=== PATIENT | female | born 1945 | race Caucasian/White ===

== ENCOUNTER → 2023-09-07 12:30 | Outpatient (REF) | payer OTHER, SELFPAY ==
[2023-09-07 13:08] LABS: % Basophils 0.9 % (0-2); % Eosinophils 3.2 % (0-6); % Lymphocytes 38.7 % (20.5-51.1); % Monocytes 13.4 % (1.7-9.3); % Neutrophils 43.8 % (42.2-75.2); Absolute Eosinophils 0.2 10^3/uL (0-0.7); Absolute Lymphocytes 1.8 10^3/uL (1.2-3.4); Absolute Monocytes 0.6 10^3/uL (0.1-0.6); Hematocrit 33.3 % (37.0-47.0); Mean Corpuscular Hgb 32.3 pg (27.0-31.0); Mean Corpuscular Volume 97.7 fL (81.0-99.0); Mean Platelet Volume 10.4 fL (7.4-10.4); Nucleated Red Blood Cells % 0 %; Platelet Count 256 10^3/uL (130-400); Red Blood Cell Count 3.41 10^6/uL (4.20-5.40); Red Cell Dist. Width 13.1 % (11.5-14.5); White Blood Cell Count 4.6 10^3/uL (4.8-10.8)
[2023-09-07 13:42] LABS: IgA 210 mg/dl (70-400); IgG 966 mg/dl (700-1600)
[2023-09-07 13:43] LABS: IgM < 25 mg/dl (40-230)
[2023-09-07 14:07] LABS: ALT (SGPT) 16 U/L (0-35); AST (SGOT) 26 U/L (14-36); Albumin 3.6 g/dl (3.5-5.0); Alkaline Phosphatase 83 U/L (38-126); Blood Urea Nitrogen 22 mg/dl (7-17); Calcium 9.4 mg/dl (8.4-10.2); Carbon Dioxide 30 mmol/L (22-30); Chloride 105 mmol/L (98-107); Glucose 89 mg/dl (70-99); Sodium 138 mmol/L (135-145); Total Bilirubin 0.5 mg/dl (0.2-1.3); eGFR > 60.00
[2023-09-07 14:17] LABS: Erythrocyte Sed Rate 24 mm/hour (0-20)
[2023-09-11 00:25] LABS: IgE 5 kU/L (<=214)
== END ==
LOC: OLABWIL 12:30
PROVIDERS: ATTENDING PHYSICIAN Internal Medicine; FAMILY PHYSICIAN Family Medicine
DX: M06.9 Rheumatoid arthritis, unspecified (principal); Z51.81 Encounter for therapeutic drug level monitoring
CPT/HCPCS: 36415; 80053; 82784; 82785; 85025; 85652; 86140

== ENCOUNTER → 2023-12-07 10:15 | Outpatient (REF) | payer OTHER, SELFPAY ==
[2023-12-07 11:28] LABS: % Basophils 0.6 % (0-2); % Eosinophils 0.9 % (0-6); % Immature Granulocytes 0.4 % (0-0.5); % Lymphocytes 25.5 % (20.5-51.1); % Monocytes 12.7 % (1.7-9.3); % Neutrophils 59.9 % (42.2-75.2); Absolute Eosinophils 0.1 10^3/uL (0-0.7); Absolute Lymphocytes 1.4 10^3/uL (1.2-3.4); Absolute Monocytes 0.7 10^3/uL (0.1-0.6); Absolute Neutrophils 3.2 10^3/uL (1.4-6.5); Hematocrit 33.2 % (37.0-47.0); Hemoglobin 10.9 g/dL (12.0-16.0); Mean Corp Hgb Conc. 32.8 g/dL (33.0-37.0); Mean Corpuscular Hgb 31.7 pg (27.0-31.0); Mean Corpuscular Volume 96.5 fL (81.0-99.0); Mean Platelet Volume 10.6 fL (7.4-10.4); Nucleated Red Blood Cells % 0 %; Platelet Count 243 10^3/uL (130-400); Red Blood Cell Count 3.44 10^6/uL (4.20-5.40); Red Cell Dist. Width 13.2 % (11.5-14.5); White Blood Cell Count 5.3 10^3/uL (4.8-10.8)
[2023-12-07 11:51] LABS: ALT (SGPT) 22 U/L (0-35); AST (SGOT) 34 U/L (14-36); Albumin 3.7 g/dl (3.5-5.0); Alkaline Phosphatase 83 U/L (38-126); Blood Urea Nitrogen 21 mg/dl (7-17); Calcium 9.9 mg/dl (8.4-10.2); Carbon Dioxide 27 mmol/L (22-30); Chloride 104 mmol/L (98-107); Glucose 91 mg/dl (70-99); Potassium 4.1 mmol/L (3.5-5.1); Sodium 139 mmol/L (135-145); Total Bilirubin 0.5 mg/dl (0.2-1.3); Total Protein 6.2 g/dl (6.3-8.2); eGFR > 60.00
[2023-12-07 12:15] LABS: TSH 0.91 uIU/ml (0.47-4.68)
[2023-12-07 12:34] LABS: Vitamin B12 > 1000 pg/ml (239-931)
== END ==
LOC: OLABWIL 10:15
PROVIDERS: ATTENDING PHYSICIAN Family Medicine
DX: E03.9 Hypothyroidism, unspecified (principal); I10 Essential (primary) hypertension; F41.1 Generalized anxiety disorder
CPT/HCPCS: 36415; 80053; 82607; 84443; 85025

== ENCOUNTER → 2024-02-01 12:40 | Outpatient (REF) | payer OTHER, SELFPAY ==
[2024-02-01 13:08] LABS: Blood Urea Nitrogen 20 mg/dl (7-17); Carbon Dioxide 30 mmol/L (22-30); Chloride 103 mmol/L (98-107); Glucose 88 mg/dl (70-99); Iron 78 ug/dl (37-170); Potassium 4.1 mmol/L (3.5-5.1); Sodium 141 mmol/L (135-145); eGFR > 60.00
[2024-02-01 13:17] LABS: Percent Saturation 35 % (20-50); Total Iron Binding Capacity 218 ug/dl (265-497)
[2024-02-01 13:44] LABS: Ferritin 54.8 ng/ml (11.1-264.0)
== END ==
LOC: OLABWIL 12:40
PROVIDERS: ATTENDING PHYSICIAN Family Medicine
DX: R60.0 Localized edema (principal); I10 Essential (primary) hypertension; D64.9 Anemia, unspecified
CPT/HCPCS: 36415; 80048; 82728; 83540; 83550

== ENCOUNTER → 2024-03-12 08:35 | Outpatient (REF) | payer OTHER, SELFPAY ==
[2024-03-12 08:57] LABS: % Basophils 0.6 % (0-2); % Eosinophils 2.3 % (0-6); % Immature Granulocytes 0.2 % (0-0.5); % Lymphocytes 38.9 % (20.5-51.1); % Monocytes 13.1 % (1.7-9.3); % Neutrophils 44.9 % (42.2-75.2); Absolute Eosinophils 0.1 10^3/uL (0-0.7); Absolute Lymphocytes 1.9 10^3/uL (1.2-3.4); Absolute Monocytes 0.6 10^3/uL (0.1-0.6); Absolute Neutrophils 2.2 10^3/uL (1.4-6.5); Hematocrit 33.1 % (37.0-47.0); Hemoglobin 11.3 g/dL (12.0-16.0); Mean Corp Hgb Conc. 34.1 g/dL (33.0-37.0); Mean Corpuscular Hgb 32.2 pg (27.0-31.0); Mean Corpuscular Volume 94.3 fL (81.0-99.0); Mean Platelet Volume 10.5 fL (7.4-10.4); Nucleated Red Blood Cells % 0 %; Platelet Count 264 10^3/uL (130-400); Red Blood Cell Count 3.51 10^6/uL (4.20-5.40); Red Cell Dist. Width 12.9 % (11.5-14.5); White Blood Cell Count 4.8 10^3/uL (4.8-10.8)
[2024-03-12 09:34] LABS: C-Reactive Protein < 5.00 mg/L (0.0-10.00); Erythrocyte Sed Rate 31 mm/hour (0-20)
[2024-03-12 09:41] LABS: ALT (SGPT) 19 U/L (0-35); AST (SGOT) 31 U/L (14-36); Alkaline Phosphatase 82 U/L (38-126); Blood Urea Nitrogen 27 mg/dl (7-17); Calcium 10.1 mg/dl (8.4-10.2); Carbon Dioxide 31 mmol/L (22-30); Chloride 102 mmol/L (98-107); Glucose 97 mg/dl (70-99); Potassium 4.4 mmol/L (3.5-5.1); Sodium 142 mmol/L (135-145); Total Bilirubin 0.4 mg/dl (0.2-1.3); Total Protein 6.4 g/dl (6.3-8.2); eGFR 57.66
[2024-03-12 10:09] LABS: Hepatitis B Surface Antigen Negative (Negative)
[2024-03-12 10:27] LABS: Hepatitis B Core Ab, Total Negative (Negative)
[2024-03-12 16:39] LABS: Hepatitis A IgM Antibody Negative (Negative)
[2024-03-13 23:25] LABS: IgA 215 mg/dl (70-400); IgG 942 mg/dl (700-1600)
[2024-03-13 23:27] LABS: IgM < 25 mg/dl (40-230)
[2024-03-14 13:40] LABS: Quantiferon Mitogen minus NIL 9.98 IU/mL; Quantiferon NIL 0.02 IU/mL; Quantiferon Plus TB2 minus NIL 0.01 IU/mL (<=0.34); Quantiferon TB Gold Plus Negative (Negative)
== END ==
LOC: REG 08:35
PROVIDERS: ATTENDING PHYSICIAN Internal Medicine
DX: G35 Multiple sclerosis (principal); M06.9 Rheumatoid arthritis, unspecified; Z51.81 Encounter for therapeutic drug level monitoring
CPT/HCPCS: 80053; 82784; 85025; 85652; 86140; 86480; 86704; 86709; 87340

== ENCOUNTER 2024-04-06 17:54 | Emergency (ER) | payer OTHER, SELFPAY ==
[2024-04-06 18:02] VITALS: BP 153/64; BMI 30.2
[2024-04-06 19:20] VITALS: BP 152/77
--- NOTE | 2024-04-06 19:55 | ED.GENMED ---
History of Present Illness
General
Chief Complaint: Fall
Source: patient
Exam Limitations: none
Time Seen by Provider: 04/06/24 18:21
Nursing documentation reviewed up to this point in time: agreed with
History of Present Illness
History of Present Illness:
78-year-old female presenting to the emergency department after a fall hitting the back of her head she claims that she lost her balance living at [place]. No loss of consciousness. Patient not on thinners. Patient feels well otherwise.
Review of Systems
Review of Systems
Allergies reviewed?: Yes
All Other Systems: ROS reviewed and negative except as documented in HPI and ROS
Phy Exam
Physical Exam
Physical Exam:
GENERAL: Alert , in no apparent distress
EYE: pupils equal and reactive
NECK: Supple, no significant adenopathy.
ENT: Hematoma to the right side of posterior scalp o/p clr, mmm.
CARDIAC: Regular rate and rhythm .
LUNGS: Clear breath sounds bilaterally, no acute respiratory distress, no wheezes/rales/rhonchi
ABDOMEN: Soft, without focal tenderness, no r/g, no cvat
NEUROLOGICAL: Alert and oriented, no focal neuro deficits
SKIN: Warm and dry, skin intact.
MUSCULOSKELETAL: No edema, well perfused.
PSYCH: Normal and appropriate interaction.
Course
Orders/Labs/Results
Orders:
Orders
04/06/24 19:22
CT Head W/o Iv Contrast Urgent
Comment:
Reason For Exam: fall hit head
Vital Signs
Initial and Last Documented VS:
Initial Vital Signs
Temp Pulse Resp BP Pulse Ox
98.3 F 70 15 153/64 99
04/06/24 18:02 04/06/24 18:02 04/06/24 18:02 04/06/24 18:02 04/06/24 18:02
Last Documented Vital Signs
Temp Pulse Resp BP Pulse Ox
98.3 F 64 18 153/64 96
04/06/24 18:02 04/06/24 18:30 04/06/24 18:30 04/06/24 18:02 04/06/24 18:30
MDM/Problems Addressed
MDM/Problems Addressed:
78-year-old female presenting after mechanical fall hitting the back of her head. Did not lose consciousness otherwise feels well no neck pain. CT scan without emergent findings no significant lacerations stable for outpatient management return
precautions given.
*Critical Care Note
Total Time (30-74mins, 75-104mins- exclusive of procedures): Not Applicable
ED Attending Note
-
Portions of this chart may have been created with voice recognition software.� Occasional wrong word or��sound alike� substitutions may have occurred due to the inherent limitations of voice recognition software.
Discharge Plan
Departure
Patient Disposition: Home (Routine Discharge)
Date of Disposition: 04/06/24
Time of Disposition: 19:55
Patient with high blood pressure during this ER visit?: No
Condition: Good
Covid-19: Not Applicable
Discharge Problem:
Fall, Contusion of scalp
Instructions: Preventing falls in adults
Activity Restrictions/Additional Instructions:
You came to emergency department today after a fall. Here your head CT did not show emergent findings. Please have close with the primary care doctor. Return to the emergency department any worsening, new or concerning symptoms
Interventions
Interventions:
*Risk Screen - Suicide Last Done: 04/06/24 18:02
*General Assessment Last Done: 04/06/24 18:02
*Neglect/Abuse Screening Last Done: 04/06/24 18:02
ED- Fall Risk Assessment Last Done: 04/06/24 18:02
*ED COVID-19 Vaccine History Last Done: 04/06/24 18:02
ED-Musculoskeletal Assessment Last Done: 04/06/24 18:02
ED- Neurological Assessment Last Done: 04/06/24 18:02
ED-Skin Assessment Last Done: 04/06/24 18:02
Discharge Date and Time
Print Language: NIGERIEN
[2024-04-06 21:19] VITALS: BP 151/74
== END 2024-04-06 21:35 ==
LOC: EMR 17:54
PROVIDERS: EMERGENCY PHYSICIAN Emergency Medicine; FAMILY PHYSICIAN Family Medicine
DX: S00.03XA Contusion of scalp, initial encounter (principal); W19.XXXA Unspecified fall, initial encounter
CPT/HCPCS: 99284; 70450

== ENCOUNTER → 2024-05-02 12:46 | Outpatient (REF) | payer OTHER, SELFPAY ==
[2024-05-02 13:17] LABS: % Basophils 0.7 % (0-2); % Eosinophils 2.8 % (0-6); % Immature Granulocytes 0.4 % (0-0.5); % Lymphocytes 42.2 % (20.5-51.1); % Monocytes 14.7 % (1.7-9.3); % Neutrophils 39.2 % (42.2-75.2); Absolute Eosinophils 0.2 10^3/uL (0-0.7); Absolute Lymphocytes 2.3 10^3/uL (1.2-3.4); Absolute Monocytes 0.8 10^3/uL (0.1-0.6); Absolute Neutrophils 2.1 10^3/uL (1.4-6.5); Hematocrit 34.3 % (37.0-47.0); Hemoglobin 11.2 g/dL (12.0-16.0); Mean Corp Hgb Conc. 32.7 g/dL (33.0-37.0); Mean Corpuscular Hgb 31.4 pg (27.0-31.0); Mean Corpuscular Volume 96.1 fL (81.0-99.0); Mean Platelet Volume 10.3 fL (7.4-10.4); Nucleated Red Blood Cells % 0 %; Platelet Count 253 10^3/uL (130-400); Red Blood Cell Count 3.57 10^6/uL (4.20-5.40); Red Cell Dist. Width 13.3 % (11.5-14.5); White Blood Cell Count 5.5 10^3/uL (4.8-10.8)
[2024-05-02 13:31] LABS: ALT (SGPT) 24 U/L (0-35); AST (SGOT) 34 U/L (14-36); Alkaline Phosphatase 81 U/L (38-126); Blood Urea Nitrogen 27 mg/dl (7-17); Calcium 9.5 mg/dl (8.4-10.2); Carbon Dioxide 30 mmol/L (22-30); Chloride 103 mmol/L (98-107); Glucose 93 mg/dl (70-99); Potassium 4.4 mmol/L (3.5-5.1); Sodium 144 mmol/L (135-145); Total Bilirubin 0.4 mg/dl (0.2-1.3); Total Protein 6.5 g/dl (6.3-8.2); eGFR > 60.00
[2024-05-02 14:02] LABS: TSH 2.96 uIU/ml (0.47-4.68)
== END ==
LOC: OLABWPC 12:46
PROVIDERS: ATTENDING PHYSICIAN Family Medicine
DX: D64.9 Anemia, unspecified (principal); E03.9 Hypothyroidism, unspecified; I10 Essential (primary) hypertension
CPT/HCPCS: 36415; 80053; 84443; 85025

== ENCOUNTER → 2024-07-11 10:47 | Outpatient (REF) | payer OTHER, SELFPAY | LOC: PAVMRI 10:47 | PROVIDERS: ATTENDING PHYSICIAN Specialist; FAMILY PHYSICIAN Family Medicine | DX: G35 Multiple sclerosis (principal) | CPT/HCPCS: 70553; 72156; A9575 ==

== ENCOUNTER → 2024-08-15 11:17 | Outpatient (REF) | payer OTHER, SELFPAY ==
[2024-08-15 12:23] LABS: % Basophils 0.4 % (0-2); % Eosinophils 1.5 % (0-6); % Immature Granulocytes 0.2 % (0-0.5); % Lymphocytes 45.4 % (20.5-51.1); % Neutrophils 39.5 % (42.2-75.2); Absolute Eosinophils 0.1 10^3/uL (0-0.7); Absolute Lymphocytes 2.4 10^3/uL (1.2-3.4); Absolute Monocytes 0.7 10^3/uL (0.1-0.6); Absolute Neutrophils 2.1 10^3/uL (1.4-6.5); Hematocrit 35.6 % (37.0-47.0); Hemoglobin 11.4 g/dL (12.0-16.0); Mean Corpuscular Hgb 32.3 pg (27.0-31.0); Mean Corpuscular Volume 100.8 fL (81.0-99.0); Mean Platelet Volume 10.8 fL (7.4-10.4); Nucleated Red Blood Cells % 0 %; Platelet Count 237 10^3/uL (130-400); Red Blood Cell Count 3.53 10^6/uL (4.20-5.40); Red Cell Dist. Width 13.3 % (11.5-14.5); White Blood Cell Count 5.4 10^3/uL (4.8-10.8)
[2024-08-15 13:22] LABS: ALT (SGPT) 15 U/L (0-35); AST (SGOT) 26 U/L (14-36); Albumin 4.1 g/dl (3.5-5.0); Alkaline Phosphatase 77 U/L (38-126); Blood Urea Nitrogen 28 mg/dl (7-17); Calcium 10.5 mg/dl (8.4-10.2); Carbon Dioxide 30 mmol/L (22-30); Chloride 101 mmol/L (98-107); Glucose 96 mg/dl (70-99); HDL Cholesterol 64 mg/dl; LDL Cholesterol, Calculated 73 mg/dl; Potassium 4.4 mmol/L (3.5-5.1); Sodium 139 mmol/L (135-145); Total Bilirubin 0.3 mg/dl (0.2-1.3); Total Cholesterol 156 mg/dl (50-199); Total Protein 6.3 g/dl (6.3-8.2); Triglyceride 99 mg/dl (10-149); Very Low Density Lipoprotein 19 mg/dl (0-30); eGFR > 60.00
[2024-08-15 14:24] LABS: TSH Reflex To Free T4 1.87 uIU/ml (0.47-4.68)
[2024-08-15 15:00] LABS: Folate 18.3 ng/ml (2.76-20); Vitamin B12 > 1000 pg/ml (239-931)
== END ==
LOC: OLABWIL 11:17
PROVIDERS: ATTENDING PHYSICIAN Family Medicine
DX: R60.0 Localized edema (principal); I10 Essential (primary) hypertension; E78.00 Pure hypercholesterolemia, unspecified; D64.9 Anemia, unspecified; E03.9 Hypothyroidism, unspecified; F41.1 Generalized anxiety disorder; F32.0 Major depressive disorder, single episode, mild
CPT/HCPCS: 36415; 80053; 80061; 82607; 82746; 84443; 85025

== ENCOUNTER → 2024-09-10 09:32 | Outpatient (REF) | payer OTHER, SELFPAY ==
[2024-09-10 10:57] LABS: % Basophils 0.5 % (0-2); % Eosinophils 1.6 % (0-6); % Immature Granulocytes 0.2 % (0-0.5); % Lymphocytes 32.7 % (20.5-51.1); % Monocytes 14.1 % (1.7-9.3); % Neutrophils 50.9 % (42.2-75.2); Absolute Eosinophils 0.1 10^3/uL (0-0.7); Absolute Lymphocytes 1.8 10^3/uL (1.2-3.4); Absolute Monocytes 0.8 10^3/uL (0.1-0.6); Absolute Neutrophils 2.8 10^3/uL (1.4-6.5); Hematocrit 33.8 % (37.0-47.0); Hemoglobin 11.2 g/dL (12.0-16.0); Mean Corp Hgb Conc. 33.1 g/dL (33.0-37.0); Mean Corpuscular Hgb 32.1 pg (27.0-31.0); Mean Corpuscular Volume 96.8 fL (81.0-99.0); Nucleated Red Blood Cells % 0 %; Platelet Count 267 10^3/uL (130-400); Red Blood Cell Count 3.49 10^6/uL (4.20-5.40); Red Cell Dist. Width 13.2 % (11.5-14.5); White Blood Cell Count 5.5 10^3/uL (4.8-10.8)
[2024-09-10 11:27] LABS: ALT (SGPT) 15 U/L (0-35); AST (SGOT) 27 U/L (14-36); Albumin 4.2 g/dl (3.5-5.0); Alkaline Phosphatase 82 U/L (38-126); Blood Urea Nitrogen 32 mg/dl (7-17); Carbon Dioxide 28 mmol/L (22-30); Chloride 101 mmol/L (98-107); Glucose 97 mg/dl (70-99); Potassium 4.3 mmol/L (3.5-5.1); Sodium 140 mmol/L (135-145); Total Bilirubin 0.7 mg/dl (0.2-1.3); Total Protein 6.7 g/dl (6.3-8.2); eGFR > 60.00
[2024-09-10 12:26] LABS: Erythrocyte Sed Rate 36 mm/hour (0-20)
[2024-09-11 16:28] LABS: IgE 5 kU/L (<=214)
[2024-09-11 23:32] LABS: IgA 209 mg/dl (70-400); IgG 952 mg/dl (700-1600)
[2024-09-11 23:38] LABS: IgM < 25 mg/dl (40-230)
== END ==
LOC: OLABWIL 09:32
PROVIDERS: ATTENDING PHYSICIAN Internal Medicine; FAMILY PHYSICIAN Family Medicine
DX: M06.9 Rheumatoid arthritis, unspecified (principal); Z51.81 Encounter for therapeutic drug level monitoring
CPT/HCPCS: 36415; 80053; 82784; 82785; 85025; 85652; 86140

== ENCOUNTER → 2024-10-15 13:45 | Outpatient (REF) | payer OTHER, SELFPAY | LOC: RAD 13:45 | PROVIDERS: ATTENDING PHYSICIAN Family Medicine; FAMILY PHYSICIAN Specialist | DX: Z78.0 Asymptomatic menopausal state (principal) | CPT/HCPCS: 77080 ==

== ENCOUNTER → 2024-12-12 09:10 | Outpatient (REF) | payer OTHER, SELFPAY ==
[2024-12-12 10:54] LABS: % Basophils 0.4 % (0-2); % Eosinophils 2.3 % (0-6); % Immature Granulocytes 0.2 % (0-0.5); % Lymphocytes 34.2 % (20.5-51.1); % Monocytes 14.3 % (1.7-9.3); % Neutrophils 48.6 % (42.2-75.2); Absolute Eosinophils 0.1 10^3/uL (0-0.7); Absolute Lymphocytes 1.7 10^3/uL (1.2-3.4); Absolute Monocytes 0.7 10^3/uL (0.1-0.6); Absolute Neutrophils 2.4 10^3/uL (1.4-6.5); Hematocrit 31.7 % (37.0-47.0); Hemoglobin 10.4 g/dL (12.0-16.0); Mean Corp Hgb Conc. 32.8 g/dL (33.0-37.0); Mean Corpuscular Hgb 31.7 pg (27.0-31.0); Mean Corpuscular Volume 96.6 fL (81.0-99.0); Mean Platelet Volume 10.4 fL (7.4-10.4); Nucleated Red Blood Cells % 0 %; Platelet Count 240 10^3/uL (130-400); Red Blood Cell Count 3.28 10^6/uL (4.20-5.40); Red Cell Dist. Width 13.2 % (11.5-14.5); White Blood Cell Count 4.9 10^3/uL (4.8-10.8)
[2024-12-12 11:24] LABS: ALT (SGPT) 15 U/L (0-35); AST (SGOT) 25 U/L (14-36); Albumin 3.8 g/dl (3.5-5.0); Alkaline Phosphatase 74 U/L (38-126); Blood Urea Nitrogen 20 mg/dl (7-17); Calcium 10.2 mg/dl (8.4-10.2); Carbon Dioxide 32 mmol/L (22-30); Chloride 106 mmol/L (98-107); Glucose 91 mg/dl (70-99); Potassium 4.1 mmol/L (3.5-5.1); Sodium 142 mmol/L (135-145); Total Bilirubin 0.3 mg/dl (0.2-1.3); Total Protein 6.3 g/dl (6.3-8.2); eGFR > 60.00
== END ==
LOC: OLABWIL 09:10
PROVIDERS: ATTENDING PHYSICIAN Family Medicine
DX: I10 Essential (primary) hypertension (principal); D64.9 Anemia, unspecified
CPT/HCPCS: 36415; 80053; 85025

== ENCOUNTER → 2025-01-09 09:23 | Outpatient (REF) | payer OTHER, SELFPAY ==
[2025-01-09 10:17] LABS: % Basophils 0.7 % (0-2); % Eosinophils 1.8 % (0-6); % Immature Granulocytes 0.2 % (0-0.5); % Lymphocytes 45.1 % (20.5-51.1); % Monocytes 10.2 % (1.7-9.3); Absolute Eosinophils 0.1 10^3/uL (0-0.7); Absolute Lymphocytes 2.5 10^3/uL (1.2-3.4); Absolute Monocytes 0.6 10^3/uL (0.1-0.6); Absolute Neutrophils 2.4 10^3/uL (1.4-6.5); Hematocrit 34.1 % (37.0-47.0); Hemoglobin 11.4 g/dL (12.0-16.0); Mean Corp Hgb Conc. 33.4 g/dL (33.0-37.0); Mean Corpuscular Volume 95.8 fL (81.0-99.0); Mean Platelet Volume 10.6 fL (7.4-10.4); Nucleated Red Blood Cells % 0 %; Platelet Count 260 10^3/uL (130-400); Red Blood Cell Count 3.56 10^6/uL (4.20-5.40); Red Cell Dist. Width 13.5 % (11.5-14.5); White Blood Cell Count 5.6 10^3/uL (4.8-10.8)
[2025-01-09 10:38] LABS: Erythrocyte Sed Rate 39 mm/hour (0-20)
[2025-01-09 11:48] LABS: ALT (SGPT) 17 U/L (0-35); AST (SGOT) 28 U/L (14-36); Albumin 4.1 g/dl (3.5-5.0); Alkaline Phosphatase 68 U/L (38-126); Blood Urea Nitrogen 24 mg/dl (7-17); Calcium 10.5 mg/dl (8.4-10.2); Carbon Dioxide 29 mmol/L (22-30); Chloride 108 mmol/L (98-107); Glucose 86 mg/dl (70-99); Phosphorus 3.8 mg/dl (2.5-4.5); Potassium 4.1 mmol/L (3.5-5.1); Sodium 143 mmol/L (135-145); Total Bilirubin 0.5 mg/dl (0.2-1.3); Total Protein 6.9 g/dl (6.3-8.2); eGFR > 60.00
[2025-01-09 13:57] LABS: C-Reactive Protein < 5.00 mg/L (0.0-10.00)
[2025-01-09 14:13] LABS: IgA 212 mg/dl (70-400)
[2025-01-09 14:18] LABS: Vitamin D, 25-OH*** 60.6 ng/mL (30-80)
[2025-01-09 14:31] LABS: TSH 4.48 uIU/ml (0.47-4.68)
[2025-01-11 14:54] LABS: Intact PTH 26.3 pg/ml (13.6-85.8)
[2025-01-11 23:42] LABS: Endomysial IgA Antibody Titer <1:10 (<1:10)
[2025-01-12 13:35] LABS: Albumin 4.03 g/dL (3.75-5.01); Alpha 1 Globulin 0.33 g/dL (0.19-0.46); Alpha 2 Globulin 0.76 g/dL (0.48-1.05); Free Kappa Light Chains,Quant 15.91 mg/L (3.30-19.40); Free Lambda Light Chains,Quant 11.52 mg/L (5.71-26.30); IgA 197 mg/dL (68-408); IgG 971 mg/dL (768-1632); IgM 22 mg/dL (35-263); Immunofixation Electrophoresis IFE Done; Kappa/Lambda Fr Light Ratio 1.38 (0.26-1.65); Total Protein-Electrophoresis 6.8 g/dL (6.3-8.2)
== END ==
LOC: OLABWHC 09:23
PROVIDERS: ATTENDING PHYSICIAN Internal Medicine; FAMILY PHYSICIAN Family Medicine
DX: E07.9 Disorder of thyroid, unspecified (principal); E21.5 Disorder of parathyroid gland, unspecified; E56.9 Vitamin deficiency, unspecified; M06.9 Rheumatoid arthritis, unspecified; M81.0 Age-related osteoporosis without current pathological fracture
CPT/HCPCS: 36415; 80053; 82306; 82784; 83516; 83521; 83970; 84100; 84155; 84165; 84443; 85025; 85652; 86140; 86231; 86334

== ENCOUNTER → 2025-01-10 13:46 | Outpatient (REF) | payer OTHER, SELFPAY | LOC: RAD 13:46 | PROVIDERS: ATTENDING PHYSICIAN Internal Medicine; FAMILY PHYSICIAN Family Medicine | DX: R29.890 Loss of height (principal) | CPT/HCPCS: 72072; 72100 ==

== ENCOUNTER → 2025-03-25 09:43 | Outpatient (REF) | payer OTHER, SELFPAY ==
[2025-03-25 10:41] LABS: Hematocrit 33.3 % (37.0-47.0); Hemoglobin 10.7 g/dL (12.0-16.0); Mean Corp Hgb Conc. 32.1 g/dL (33.0-37.0); Mean Corpuscular Volume 97.1 fL (81.0-99.0); Nucleated Red Blood Cells % 0 %; Platelet Count 248 10^3/uL (130-400); Red Cell Dist. Width 13.2 % (11.5-14.5)
[2025-03-25 13:47] LABS: Iron 46 ug/dl (37-170)
[2025-03-25 13:57] LABS: Total Iron Binding Capacity 229 ug/dl (265-497)
[2025-03-25 15:55] LABS: Ferritin 58.0 ng/ml (11.1-264.0)
[2025-03-25 16:26] LABS: Folate > 20.0 ng/ml (2.76-20); Vitamin B12 > 1000 pg/ml (239-931)
== END ==
LOC: OLABWIL 09:43
PROVIDERS: ATTENDING PHYSICIAN Family Medicine
DX: E03.9 Hypothyroidism, unspecified (principal); D64.9 Anemia, unspecified
CPT/HCPCS: 36415; 82607; 82728; 82746; 83540; 83550; 84443; 85025

== ENCOUNTER → 2025-04-17 10:34 | Outpatient (REF) | payer OTHER, SELFPAY ==
[2025-04-17 12:08] LABS: Hematocrit 33.7 % (37.0-47.0); Hemoglobin 11.1 g/dL (12.0-16.0); Mean Corp Hgb Conc. 32.9 g/dL (33.0-37.0); Mean Corpuscular Volume 98.5 fL (81.0-99.0); Nucleated Red Blood Cells % 0 %; Platelet Count 258 10^3/uL (130-400); Red Cell Dist. Width 13.2 % (11.5-14.5)
[2025-04-17 12:56] LABS: ALT (SGPT) 16 U/L (0-35); AST (SGOT) 26 U/L (14-36); Albumin 3.9 g/dl (3.5-5.0); Alkaline Phosphatase 75 U/L (38-126); Blood Urea Nitrogen 18 mg/dl (7-17); Calcium 9.9 mg/dl (8.4-10.2); Carbon Dioxide 32 mmol/L (22-30); Chloride 105 mmol/L (98-107); Glucose 82 mg/dl (70-99); Potassium 4.4 mmol/L (3.5-5.1); Sodium 141 mmol/L (135-145); Total Protein 6.4 g/dl (6.3-8.2); eGFR > 60.00
[2025-04-17 13:15] LABS: C-Reactive Protein 7.40 mg/L (0.0-10.00)
== END ==
LOC: OLABWIL 10:34
PROVIDERS: ATTENDING PHYSICIAN Internal Medicine; FAMILY PHYSICIAN Family Medicine
DX: M06.9 Rheumatoid arthritis, unspecified (principal); Z51.81 Encounter for therapeutic drug level monitoring
CPT/HCPCS: 36415; 80053; 82784; 85025; 85652; 86140

== ENCOUNTER → 2025-06-24 12:56 | Outpatient (REF) | payer OTHER, SELFPAY ==
[2025-06-24 13:27] LABS: Hematocrit 36.8 % (37.0-47.0); Hemoglobin 11.5 g/dL (12.0-16.0); Mean Corp Hgb Conc. 31.3 g/dL (33.0-37.0); Mean Corpuscular Volume 99.7 fL (81.0-99.0); Nucleated Red Blood Cells % 0 %; Platelet Count 293 10^3/uL (130-400); Red Cell Dist. Width 12.9 % (11.5-14.5)
[2025-06-24 14:41] LABS: ALT (SGPT) 20 U/L (0-35); AST (SGOT) 28 U/L (14-36); Albumin 4.1 g/dl (3.5-5.0); Alkaline Phosphatase 96 U/L (38-126); Blood Urea Nitrogen 24 mg/dl (7-17); Calcium 10.0 mg/dl (8.4-10.2); Carbon Dioxide 31 mmol/L (22-30); Chloride 101 mmol/L (98-107); Glucose 92 mg/dl (70-99); Potassium 4.1 mmol/L (3.5-5.1); Sodium 138 mmol/L (135-145); Total Protein 6.9 g/dl (6.3-8.2); eGFR > 60.00
== END ==
LOC: OLABWIL 12:56
PROVIDERS: ATTENDING PHYSICIAN Family Medicine
DX: I10 Essential (primary) hypertension (principal); D64.9 Anemia, unspecified; E03.9 Hypothyroidism, unspecified
CPT/HCPCS: 36415; 80053; 84443; 85025